=== PATIENT | female | born 1985 | race Caucasian/White ===

== ENCOUNTER 2018-10-18 12:28 | Emergency (ER) | payer BC, SELFPAY ==
[2018-10-18 13:04] LABS: Hemoglobin 16.4 g/dL (12.0-16.0); Mean Corpuscular HGB CONC 33.5 g/dL (32.0-36.0); Mean Corpuscular Hemoglobin 29.8 pg (27.0-31.0); Mean Platelet Volume 8.9 fL (7.4-10.4); Platelet Count 207 thou/uL (130-400); RBC Distribution Width 12.1 % (11.5-14.5); White Blood Cell (WBC) Count 8.8 thou/uL (4.8-10.8)
[2018-10-18 13:22] LABS: ALT (SGPT) 16 U/L (8-55); AST (SGOT) 21 U/L (5-34); Albumin 4.7 g/dL (3.5-5.0); Alkaline Phosphatase 52 U/L (40-150); Anion Gap 14 mmol/L (10-20); BUN (Urea Nitrogen) 10 mg/dL (7.0-18.7); Bilirubin, Total 1.5 mg/dL (0.2-1.2); Calc. Creatinine Clearance 0 mL/min (70-130); Calcium 9.8 mg/dL (7.8-10.44); Carbon Dioxide 22 mmol/L (22-29); Chloride 105 mmol/L (98-107); Estimated GFR-MDRD 80; Globulin 3.2 g/dL (2.4-3.5); Glucose 97 mg/dL (70-105); Potassium 3.8 mmol/L (3.5-5.1); Protein, Total 7.9 g/dL (6.0-8.3); Sodium 137 mmol/L (136-145)
[2018-10-18 13:25] LABS: Lymphocytes 31 % (21-51); MDiff Complete? YES; Monocytes 3 % (0-10); Neutrophil 66 % (42-75); Platelet Morphology Comment Appears Adequate
[2018-10-18 13:32] LABS: BHCG - Serum Negative (NEGATIVE); Pregs Control Background? CLEAR/WHITE (CLR/WHITE); Pregs Control Bar Appear? YES (CONTROL BAR)
--- NOTE | 2018-10-18 13:48 | RAD ---
Exam: Chest one view HISTORY:Dizziness. Lightheadedness. Comparison: None. FINDINGS: Cardiac silhouette:Prominent cardiac silhouette due to technique Aorta: Unremarkable Pulmonary vessels: Normal Costophrenic angles: Clear LUNGS: No masses or consolidation. Pneumothorax: None Osseous abnormalities: None IMPRESSION: No acute cardiopulmonary process.
[2018-10-18] MEDS ORDERED: ISOVUE-370 76%-LOCM 1 ML ONE (13:57)
--- NOTE | 2018-10-18 14:21 | CT ---
Exam: CT angiogram of the chest HISTORY: Dyspnea, lightheadedness, dizziness, difficulty breathing and chest tightness COMPARISON: None TECHNIQUE: CT angiogram of the chest is performed in the axial plane. Three-dimensional reformatted i mages are submitted for interpretation FINDINGS: Mediastinum: No mass, lymphadenopathy or hematoma. HEART: Normal size. No significant pericardial fluid. Aorta: No aneurysm or dissection Upper solid abdominal viscera: No abnormality enhancement. Trachea and central bronchi: Patent Pleural spaces: No effusion Lung parenchyma: No masses or consolidation. Pneumothorax: None Osseous structures: No lytic or blastic lesions Pulmonary arteries: Adequate contrast opacification pulmonary arterial system to the level of segment al arteries. No filling defect to suggest pulmonary embolism IMPRESSION:No evidence of pulmonary artery embolism to the level of the segmental arteries
== END 2018-10-18 14:56 | disposition home or self-care (01) ==
LOC: ERS 12:28
DX: R07.81 Pleurodynia (principal); E03.9 Hypothyroidism, unspecified; Z79.899 Other long term (current) drug therapy
CPT/HCPCS: 71045; 71275; 80053; 83690; 84443; 84484; 84703; 85025; 85379; 93005; 96360; 96361; Q9966

== ENCOUNTER 2019-02-10 08:46 | Outpatient (CLI) | payer BC ==
--- NOTE | 2019-02-10 09:54 | MMO ---
Bilateral MAMMO Bilat Diag [facility]. CLINICAL HISTORY: Patient is 33 years old and is seen for diagnostic exam. The patient has no family history of breast cancer. The patient has a history of cervical cancer. VIEWS: The views performed were: bilateral craniocaudal with tomosynthesis; bilateral mediolateral oblique with tomosynthesis; and bilateral mediolateral with tomosynthesis. This study has been interpreted with the assistance of computer-aided detection. MAMMOGRAM FINDINGS: The breasts are heterogeneously dense, which could obscure a lesion on mammography. Finding 1: There are amorphous or indistinct calcifications with grouped or clustered distribution seen in the central region of the left breast. Finding 2: There are global asymmetries seen in both breasts. IMPRESSION: FINDING 1: CALCIFICATIONS IN THE LEFT BREAST ARE PROBABLY BENIGN. FOLLOW-UP IN 6 MONTHS IS RECOMMENDED. FINDINGS AND RECOMMENDATIONS WERE DISCUSSED WITH THE PATIENT PRIOR TO LEAVING THE FACILITY.OPTION FOR BX WAS DISCUSSED. ALL QUESTIONS ANSWERED. FINDING 2: GLOBAL ASYMMETRIES IN BOTH BREASTS ARE BENIGN. THE RESULTS OF THIS EXAM WERE SENT TO THE PATIENT. ACR BI-RADS Category 3 - Probably benign finding - short interval follow-up suggested. [facility] will notify the patient of the need for additional imaging services. MAMMOGRAPHY NOTE: 1. A negative mammogram report should not delay a biopsy if a dominant of clinically suspicious mass is present. 2. Approximately 10% to 15% of breast cancers are not detected by mammography. 3. Adenosis and dense breasts may obscure an underlying neoplasm. Reported by: CONSUELO VEGA MD Electonically Signed: [id number]
== END 2019-02-10 08:47 | disposition home or self-care (01) ==
LOC: BICMAMMO 08:46
PROVIDERS: ATTEND Physician Assistant
DX: N64.4 Mastodynia (principal); R92.1 Mammographic calcification found on diagnostic imaging of breast
CPT/HCPCS: 77066; G0279

== ENCOUNTER 2021-01-22 08:22 | Outpatient (CLI) | payer OTHER | END 2021-01-22 08:23 | disposition home or self-care (01) | LOC: BICMAMMO 08:22 | PROVIDERS: ATTEND Obstetrics & Gynecology | DX: R92.8 Other abnormal and inconclusive findings on diagnostic imaging of breast (principal) | CPT/HCPCS: 77063; 77066; 77067; G0279 ==

== ENCOUNTER 2022-03-20 15:21 | Outpatient (CLI) | payer OTHER | END 2022-03-20 15:22 | disposition home or self-care (01) | LOC: RAD-FRANK 15:21 | PROVIDERS: ATTEND Nurse Practitioner Family | DX: M54.42 Lumbago with sciatica, left side (principal) | CPT/HCPCS: 72100 ==

== ENCOUNTER 2022-10-21 07:58 | Outpatient (CLI) | payer OTHER | END 2022-10-21 07:59 | disposition home or self-care (01) | LOC: RAD-FRANK 07:58 | PROVIDERS: ATTEND Nurse Practitioner Family | DX: R05.8 Other specified cough (principal) | CPT/HCPCS: 71046 ==